=== PATIENT | female | born 1965 | race Caucasian/White ===

== ENCOUNTER 2017-04-24 08:05 | Emergency (ER) | payer SELFPAY ==
[~2017-04-24] VITALS: Ht 162.6 cm; Wt 81.6 kg
[2017-04-24 08:09] VITALS: BP 193/116
--- NOTE | 2017-04-24 08:12 | NUR ---
Patient ambulated to bed 04.
--- NOTE | 2017-04-24 08:15 | NUR ---
52F BIB SELF C/O RT ARM PAIN, ACHING/SHARP, RADIATES TO RT SHOULDER, 04/24 X 4 DAYS; PT STATES NO TRAUMA OR INJURY TO RT ARM AT THIS TIME; RT RADIAL PULSE PALPABLE, RT CAP REFILL IMMEDIATE, NO LOSS OR SENSATION OR ROM TO RT ARM AT THIS TIME; PT AA&OX4, PERRLA, BL LUNG SOUNDS CLEAR, RR EVEN/UNLABORED, SKIN IS WARM/DRY/INTACT AT THIS TIME; PT STATES NO N/V/D AT THIS TIME; STEADY GAIT; PT RESTING IN BED WITH HOB ELEVATED AND IN LOWEST POSITION; POSITIONED FOR COMFORT; ER MD MADE AWARE OF STATUS. WILL CONTINUE TO MONITOR.
--- NOTE | 2017-04-24 08:30 | NUR ---
ER MD DR. CARO EVALUATING PT AT BEDSIDE.
[2017-04-24] MEDS ORDERED: fentaNYL 0.05 MG/ML VIAL IM ONE (08:35)
--- NOTE | 2017-04-24 08:45 | NUR ---
PT TAKEN TO CT VIA W/C ACCOMPANIED BY CUSTOM GARMENT DESIGNER.
--- NOTE | 2017-04-24 09:49 | NUR ---
OMAR CARO AT BEDSIDE.
[2017-04-24 10:05] VITALS: BP 166/96
--- NOTE | 2017-04-24 10:05 | NUR ---
Patient discharged with v/s stable. Pt discharged with BP 166/96. Pt states no headache, dizziness, or blurry vision at this time. ER MD Dr. Busch notified and ok to discharge. Written and verbal after care instructions given and explained. Patient alert, oriented and verbalized understanding of instructions. Ambulatory with steady gait. All questions addressed prior to discharge. ID band removed. Patient advised to follow up with PMD. Rx of TRAMADOL HYDROCHLORIDE 50MG TAB given. Patient educated on indication of medication including possible reaction and side effects. Opportunity to ask questions provided and answered.
== END 2017-04-24 10:05 | disposition home or self-care (01) ==
LOC: MED 08:05
DX: M54.12 Radiculopathy, cervical region (principal); M19.011 Primary osteoarthritis, right shoulder; I10 Essential (primary) hypertension; F41.9 Anxiety disorder, unspecified; F17.210 Nicotine dependence, cigarettes, uncomplicated
CPT/HCPCS: 72125; 73030; 96372; 99284; J3010

== ENCOUNTER 2018-01-09 06:08 | Emergency (ER) | payer BC ==
[~2018-01-09] VITALS: Ht 162.6 cm; Wt 96.7 kg
[2018-01-09 06:10] VITALS: BP 170/91
--- NOTE | 2018-01-09 06:10 | NUR ---
PATIENT TO ER BED 8.
--- NOTE | 2018-01-09 06:15 | NUR ---
PATIENT IS 53 Y/O FEMALE WHO PRESENTS TO THE ED C/O CHEST PAIN. PT STATES THAT IT STARTED X1 DAY AGO. PT REPORTS UPPER CHEST PAIN AND HEADACHE 6/10 ACHING THAT RADIATES TO BOTH ARMS. PT DENIES COUGH, SOB, N/V/D. PT AAOX4, RR EVEN/UNLABORED. PT REPOSITIONED FOR COMFORT, BED IN LOWEST POSITION. ER MD DR. RODRÍGUEZ NOTIFIED. WILL CONTINUE TO MONITOR. Addendum: 01/09/18 at 0625 by [facility] PATIENT IS 53 Y/O FEMALE WHO PRESENTS TO THE ED C/O CHEST PAIN. PT STATES THAT IT STARTED X1 DAY AGO. PT REPORTS UPPER CHEST PAIN AND HEADACHE 6/10 ACHING THAT RADIATES TO BOTH ARMS. PT DENIES COUGH, SOB, N/V/D. PT AAOX4, RR EVEN/UNLABORED, AMBULATED WITH STEADY GAIT. PT REPOSITIONED FOR COMFORT, BED IN LOWEST POSITION. ER MD DR. RODRÍGUEZ NOTIFIED. WILL CONTINUE TO MONITOR.
[2018-01-09] MEDS ORDERED: LISI40TA4 PO (06:27)
[2018-01-09] MEDS ORDERED: ASPIRIN 325 MG TAB PO ONE (06:40)
--- NOTE | 2018-01-09 06:48 | NUR ---
XRAY AT BEDSIDE FOR INTERVENTION.
[2018-01-09 07:17] LABS: BASOPHILS # (AUTO) 0.1 K/uL (0.00-0.22); BASOPHILS % (AUTO) 1.2 % (0.0-2.0); EOSINOPHILS # (AUTO) 0.2 K/uL (0-0.4); EOSINOPHILS % (AUTO) 3.1 % (0.0-4.0); HEMATOCRIT 41.1 % (36-48); HEMOGLOBIN 14.2 g/dL (12.0-16.0); LYMPHOCYTES # (AUTO) 1.5 K/uL (2.5-16.5); LYMPHOCYTES % (AUTO) 25.1 % (20.5-51.1); MEAN CORPUSCULAR HEMOGLOBIN 33 pg (27-31); MEAN CORPUSCULAR HGB CONC 35 g/dL (33-37); MEAN CORPUSCULAR VOLUME 94.2 fL (80-94); MONOCYTES # (AUTO) 0.5 K/uL (0.8-1.0); MONOCYTES % (AUTO) 8.4 % (1.7-9.3); NEUTROPHILS # (AUTO) 3.6 K/uL (1.8-7.7); NEUTROPHILS % (AUTO) 62.2 % (42.2-75.2); PLATELET COUNT (AUTO) 265 K/uL (140-450); RED BLOOD CELL COUNT(AUTO) 4.36 MIL/uL (4.20-5.40); RED CELL DISTRIBUTION WIDTH 13.3 % (11.6-13.7); WHITE BLOOD COUNT (AUTO) 5.8 K/uL (4.8-10.8)
--- NOTE | 2018-01-09 07:21 | NUR ---
RECEIVED REPORT FROM LUCAS DAWSON. Addendum: 01/09/18 at 0726 by [facility] Patient appears to be resting comfortably in bed. BP 140/71,Respirations even and unlabored.DENIES ANY PAIN AT THIS TIME. WILL CONTINUE TO MONITOR.
[2018-01-09 07:31] LABS: BARBITURATE, URINE NEG. ng/ml (NEG <=200); BENZODIAZEPINE, URINE NEG. ng/mL (NEG <=200); CANNABINOID, URINE NEG. ng/mL (NEG <=50); COCAINE, URINE NEG. ng/mL (NEG <=300); OPIATE, URINE NEG. ng/mL (NEG <=2000); PHENCYCLIDINE SCREEN,URINE NEG. ng/mL (NEG <=25)
[2018-01-09 07:37] LABS: ALBUMIN 3.8 g/dL (3.4-5.0); ANION GAP 12.7 (8-16); CARBON DIOXIDE 28.1 mmol/L (21-32); POTASSIUM 3.8 mmol/L (3.5-5.1); TOTAL BILIRUBIN 0.3 mg/dL (0.0-1.0)
[2018-01-09 07:59] LABS: BILIRUBIN,URINE 1+ (NEGATIVE); BLOOD, URINE 2+ (NEGATIVE); COLOR,URINE YELLOW (YELLOW); LEUKOCYTE ESTERASE ,URINE NEGATIVE (NEGATIVE); NITRITE, URINE NEGATIVE (NEGATIVE); PH,URINE 6.5 (5.0-9.0); UGLUCOSE NEGATIVE (NEGATIVE)
[2018-01-09 08:05] LABS: RBC,URINE 3-10 (FEW) /HPF (0-5)
[2018-01-09 08:06] LABS: APPEARANCE,URINE SLIGHTLY HAZY (CLEAR); WBC,URINE 0-5 (RARE) /HPF (0-5)
--- NOTE | 2018-01-09 08:10 | NUR ---
Patient being evaluated by dr barrientos at bedside.
[2018-01-09 08:38] VITALS: BP 147/70
--- NOTE | 2018-01-09 08:38 | NUR ---
Patient discharged with BP 147/70; PT DENIES WILHELM OR DIZINESS AT THIS TIME,DR CARO MADE AWARE. Written and verbal after care instructions given and explained. Patient alert, oriented and verbalized understanding of instructions. Ambulatory with steady gait. All questions addressed prior to discharge. ID band removed. Patient advised to follow up with PMD. Rx of TRAMADOL & OMEPRAZOLE given. Patient educated on indication of medication including possible reaction and side effects. Opportunity to ask questions provided and answered.
== END 2018-01-09 08:38 | disposition home or self-care (01) ==
LOC: MED 06:08
DX: K21.9 Gastro-esophageal reflux disease without esophagitis (principal); G43.909 Migraine, unspecified, not intractable, without status migrainosus; I10 Essential (primary) hypertension; F17.210 Nicotine dependence, cigarettes, uncomplicated
CPT/HCPCS: 36415; 71045; 80053; 80305; 81001; 84484; 85025; 93005; 99285; Q0092